=== PATIENT | male | born 1960 | race Caucasian/White ===

== ENCOUNTER 2023-09-09 13:16 | Inpatient (IN) | payer MEDICARE, MEDICAID ==
[2023-09-09] MEDS ORDERED: Glucagon 1 MG/ML KIT ONE (14:24)
[2023-09-09] MEDS ORDERED: PROPOFOL 0 ML ONE (16:44)
[2023-09-09] MEDS ORDERED: Famotidine/PF 20 mg/2ml Vial ONE (16:46)
[2023-09-09] MEDS ORDERED: Lidocaine 2% PF 5 ML VIAL ONE (16:54)
[2023-09-09] MEDS ORDERED: PROPOFOL 20 ML ONE ×2 (16:54→18:02)
[2023-09-09 17:05] LABS: #Basophils 0.1 thou/uL (0.0-0.2); #Eosinphils 0.2 thou/uL (0.0-0.7); #Monocytes 0.4 thou/uL (0.11-0.59); #Neutrophils 5.5 thou/uL (1.40-6.50); %Basophils 0.8 % (0.0-1.0); %Eosinophils 3.1 % (0.0-10.0); %Lymphocytes 17.3 % (21.0-51.0); %Monocytes 4.8 % (0.0-10.0); %Neutrophils 73.6 % (42.0-75.0); Hematocrit 44.9 % (42.0-52.0); Hemoglobin 15.4 g/dL (14.0-18.0); Mean Corpuscular HGB CONC 34.3 g/dL (32.0-36.0); Mean Corpuscular Volume 90.5 fl (78.0-98.0); Mean Platelet Volume 10.7 fL (7.4-10.4); RBC Distribution Width 13.8 % (11.5-14.5); Red Blood Cell (RBC) Count 4.96 mill/uL (4.70-6.10); White Blood Cell (WBC) Count 7.4 10x3/uL (4.8-10.8)
[2023-09-09 17:06] LABS: Platelet Count 97 10x3/uL (130-400)
[2023-09-09] MEDS ORDERED: fentaNYL 50 mcg/mL 1 mL Vial ONE (17:14)
[2023-09-09] MEDS ORDERED: SUCCINYLCHOLINE/SOD CL,ISO/PF 200 MG/10 ML SYRINGE FS ONE (17:17)
[2023-09-09 17:39] LABS: ALT (SGPT) 55 U/L (8-55); AST (SGOT) 25 U/L (5-34); Albumin 3.9 g/dL (3.4-4.8); Alkaline Phosphatase 100 U/L (40-110); Anion Gap 10 mmol/L (10-20); BUN (Urea Nitrogen) 12 mg/dL (8.4-25.7); Bilirubin, Total 0.7 mg/dL (0.2-1.2); Calc. Creatinine Clearance 0 mL/min (70-130); Calcium 8.8 mg/dL (7.8-10.44); Carbon Dioxide 28 mmol/L (23-31); Chloride 104 mmol/L (98-107); Estimated GFR 101; Globulin 2.7 g/dL (2.4-3.5); Glucose 112 mg/dL (80-115); Potassium 3.9 mmol/L (3.5-5.1); Protein, Total 6.6 g/dL (5.8-8.1); Sodium 138 mmol/L (136-145)
[2023-09-09] MEDS ORDERED: Dexamethasone 20 MG/5 ML VIAL ONE (18:03)
[2023-09-09] MEDS ORDERED: PHENYLEPHRINE-NS 100 MCG/ML 10 ML SYRINGE ONE (18:03)
[2023-09-09] MEDS ORDERED: Midazolam HCl 2 mg/2 ml Vial ONE (18:07)
[2023-09-09] MEDS ORDERED: Ondansetron HCl/PF 4 MG/2 ML Vial IVP PRN (18:53)
[2023-09-09] MEDS ORDERED: Ondansetron PF 4 MG/2 ML Vial IVP PRN (19:07)
[2023-09-09] MEDS ORDERED: Ondansetron ODT 4 MG TAB PO PRN (19:07)
[2023-09-09] MEDS ORDERED: Acetaminophen 650 MG Suppository PR PRN (19:07)
[2023-09-09] MEDS ORDERED: Acetaminophen 325 MG TAB PO PRN (19:07)
[2023-09-09] MEDS ORDERED: Nystatin Powder 15 GM BOT TOP PRN (21:45)
[2023-09-09] MEDS: Famotidine/PF 20 mg/2ml Vial SLOW IVP SCH (22:23)
[2023-09-09] MEDS: Sodium Chloride 0.9% 1,000 ML IV SCH (22:23)
[2023-09-09] MEDS: Famotidine 20 MG TAB PO SCH (22:47)
[2023-09-09] MEDS: Trihexyphenidyl 2 MG TAB PO SCH (23:47)
[2023-09-10 04:29] LABS: #Monocytes 0.1 thou/uL (0.11-0.59); %Basophils 0.2 % (0.0-1.0); %Eosinophils 0.2 % (0.0-10.0); %Lymphocytes 5.9 % (21.0-51.0); %Monocytes 1.8 % (0.0-10.0); %Neutrophils 91.6 % (42.0-75.0); Hematocrit 41.7 % (42.0-52.0); Hemoglobin 14.4 g/dL (14.0-18.0); Mean Corpuscular HGB CONC 34.5 g/dL (32.0-36.0); Mean Corpuscular Hemoglobin 31.1 pg (27.0-31.0); Mean Corpuscular Volume 90.1 fl (78.0-98.0); RBC Distribution Width 13.6 % (11.5-14.5); Red Blood Cell (RBC) Count 4.63 mill/uL (4.70-6.10); White Blood Cell (WBC) Count 6.6 10x3/uL (4.8-10.8)
[2023-09-10 04:31] LABS: Platelet Count 89 10x3/uL (130-400)
[2023-09-10 04:52] LABS: Anion Gap 10 mmol/L (10-20); BUN (Urea Nitrogen) 15 mg/dL (8.4-25.7); Calc. Creatinine Clearance 121 mL/min (70-130); Calcium 8.4 mg/dL (7.8-10.44); Carbon Dioxide 26 mmol/L (23-31); Chloride 105 mmol/L (98-107); Estimated GFR 101; Glucose 137 mg/dL (80-115); Potassium 3.8 mmol/L (3.5-5.1); Sodium 137 mmol/L (136-145)
[2023-09-10] MEDS: Piperacillin/Tazobactam 3.375 GM in Sodium Chloride 0.9% 100 ML IVPB SCH ×2 (11:37→15:28)
[2023-09-10] MEDS: Senokot S 8.6-50 MG TAB PO SCH (11:39)
[2023-09-10] MEDS: guaiFENesin ER 600 MG TAB PO SCH (11:39)
[2023-09-10] MEDS: Folic Acid 1 MG TAB PO SCH (21:07)
[2023-09-10] MEDS: Cyanocobalamin (Vitamin B-12) 1,000 MCG TAB PO SCH (21:07)
[2023-09-10] MEDS: Multivit, Therapeutic 1 TAB PO SCH (21:08)
[2023-09-10] MEDS: Saccharomyces boulardii 250 MG CAP PO SCH (21:08)
[2023-09-10] MEDS: Trihexyphenidyl 2 MG TAB PO SCH (21:10)
[2023-09-11 03:33] VITALS: BMI 34.5
[2023-09-11 03:59] LABS: #Basophils 0.1 thou/uL (0.0-0.2); #Eosinphils 0.1 thou/uL (0.0-0.7); #Monocytes 0.3 thou/uL (0.11-0.59); #Neutrophils 3.3 thou/uL (1.40-6.50); %Eosinophils 2.5 % (0.0-10.0); %Lymphocytes 25.7 % (21.0-51.0); %Monocytes 6.2 % (0.0-10.0); %Neutrophils 64.4 % (42.0-75.0); Hematocrit 39.6 % (42.0-52.0); Hemoglobin 13.6 g/dL (14.0-18.0); Mean Corpuscular HGB CONC 34.3 g/dL (32.0-36.0); Mean Corpuscular Hemoglobin 31.4 pg (27.0-31.0); Mean Corpuscular Volume 91.5 fl (78.0-98.0); RBC Distribution Width 13.7 % (11.5-14.5); Red Blood Cell (RBC) Count 4.33 mill/uL (4.70-6.10); White Blood Cell (WBC) Count 5.1 10x3/uL (4.8-10.8)
[2023-09-11 04:01] LABS: Platelet Count 81 10x3/uL (130-400)
[2023-09-11 04:33] LABS: Anion Gap 8 mmol/L (10-20); BUN (Urea Nitrogen) 18 mg/dL (8.4-25.7); Calc. Creatinine Clearance 118 mL/min (70-130); Carbon Dioxide 27 mmol/L (23-31); Chloride 105 mmol/L (98-107); Estimated GFR 100; Glucose 99 mg/dL (80-115); Magnesium 1.6 mg/dL (1.6-2.6); Phosphorus 2.5 mg/dL (2.3-4.7); Potassium 3.7 mmol/L (3.5-5.1); Sodium 136 mmol/L (136-145)
[2023-09-11] MEDS ORDERED: Magnesium Sulfate 4 GM in Sodium Chloride 0.9% 250 ML 250 ML IVPB SCH (07:30)
[2023-09-11] MEDS: Magnesium Sulfate In Water 4 GM in Premix 1 BAG IVPB SCH (10:22)
[2023-09-11 11:44] VITALS: BP 101/59; TEMP 98.1
== END 2023-09-11 14:00 | DRG 393 ==
LOC: ERS 13:16 → SDC/OP 17:47 → SURG A 17:49 → OBSVTOIN 09-10 08:04
PROVIDERS: ADMIT Internal Medicine; ATTEND Internal Medicine
PROC: 0DC18ZZ Extirpation of Matter from Upper Esophagus, Via Natural or Artificial Opening Endoscopic (ICD-10-PCS; principal; 2023-09-09)
DX: T18.128A Food in esophagus causing other injury, initial encounter (principal); J69.0 Pneumonitis due to inhalation of food and vomit; F20.0 Paranoid schizophrenia; G20.A1 Parkinson's disease without dyskinesia, without mention of fluctuations; Z68.34 Body mass index [BMI] 34.0-34.9, adult; E11.9 Type 2 diabetes mellitus without complications; I25.10 Atherosclerotic heart disease of native coronary artery without angina pectoris; D69.6 Thrombocytopenia, unspecified; E66.9 Obesity, unspecified; E87.6 Hypokalemia; E83.42 Hypomagnesemia; D53.9 Nutritional anemia, unspecified; Z98.890 Other specified postprocedural states; Z79.899 Other long term (current) drug therapy; Z90.49 Acquired absence of other specified parts of digestive tract
CPT/HCPCS: 36415; 71045; 80048; 80053; 83735; 84100; 84145; 85025; 93005; 96365; J1100; J1611; J2001; J2250; J2543; J2704; J3010; J3475; J3490; J7050; S0028

== ENCOUNTER 2023-10-13 12:29 | Emergency (ER) | payer MEDICARE, MEDICAID | END 2023-10-13 16:45 | disposition home or self-care (01) | LOC: ERS 12:29 | DX: S16.1XXA Strain of muscle, fascia and tendon at neck level, initial encounter (principal); S09.90XA Unspecified injury of head, initial encounter; I95.9 Hypotension, unspecified; E11.9 Type 2 diabetes mellitus without complications; Z79.899 Other long term (current) drug therapy; W06.XXXA Fall from bed, initial encounter | CPT/HCPCS: 70450; 72125 ==

== ENCOUNTER 2024-04-30 15:50 | Emergency (ER) | payer MEDICARE, MEDICAID ==
[2024-04-30 18:30] LABS: #Basophils 0.04 10x3/uL (0.0-0.2); %Basophils 0.7 % (0.0-1.0); %Eosinophils 2.8 % (0.0-10.0); %Lymphocytes 21.4 % (21.0-51.0); %Monocytes 7.8 % (0.0-10.0); %Neutrophils 66.6 % (42.0-75.0); Hematocrit 40.2 % (42.0-52.0); Hemoglobin 14.1 g/dL (14.0-18.0); Mean Corpuscular HGB CONC 35.1 g/dL (32.0-36.0); Mean Corpuscular Hemoglobin 31.7 pg (27.0-31.0); Mean Corpuscular Volume 90.3 fL (78.0-98.0); Mean Platelet Volume 9.9 fL (7.4-10.4); Platelet Count 130 10x3/uL (130-400); RBC Distribution Width 14.4 % (11.5-14.5); Red Blood Cell (RBC) Count 4.45 mill/uL (4.70-6.10)
[2024-04-30 18:43] LABS: CRP,High Sensitivity (Inhouse) 0.82 mg/dL (< or = 0.5)
[2024-04-30 18:44] LABS: ALT (SGPT) 15 U/L (8-55); AST (SGOT) 17 U/L (5-34); Albumin 3.6 g/dL (3.4-4.8); Alkaline Phosphatase 79 U/L (40-110); Anion Gap 9 mmol/L (10-20); BUN (Urea Nitrogen) 14 mg/dL (8.4-25.7); Bilirubin, Total 0.8 mg/dL (0.2-1.2); CK (CPK) 90 U/L (30-200); Calc. Creatinine Clearance 0 mL/min (70-130); Calcium 8.5 mg/dL (7.8-10.44); Carbon Dioxide 25 mmol/L (23-31); Chloride 104 mmol/L (98-107); Estimated GFR 99; Globulin 2.9 g/dL (2.4-3.5); Glucose 94 mg/dL (80-115); Potassium 3.8 mmol/L (3.5-5.1); Protein, Total 6.5 g/dL (5.8-8.1); Sodium 134 mmol/L (136-145)
== END 2024-04-30 19:20 ==
LOC: ERS 15:50
DX: L03.115 Cellulitis of right lower limb (principal); M25.551 Pain in right hip; M25.561 Pain in right knee; E11.9 Type 2 diabetes mellitus without complications; Z86.16 Personal history of COVID-19; R60.0 Localized edema
CPT/HCPCS: 36415; 80053; 82550; 83605; 85025; 86141; 87040

== ENCOUNTER 2025-06-24 10:30 | Outpatient (CLI) | payer MEDICARE, MEDICAID | END 2025-06-24 10:31 | disposition home or self-care (01) | LOC: MRI 10:30 | PROVIDERS: ATTEND Nurse Practitioner Family | DX: M17.12 Unilateral primary osteoarthritis, left knee (principal); M25.561 Pain in right knee; M79.89 Other specified soft tissue disorders; S86.012A Strain of left Achilles tendon, initial encounter; M25.462 Effusion, left knee | CPT/HCPCS: 36415; 82565 ==